=== PATIENT | female | born 1965 | race Caucasian/White ===

== ENCOUNTER → 2024-11-16 | Outpatient (CLI) | payer MEDICAID, SELFPAY ==
--- NOTE | 2024-11-16 14:07 | CT_ITS ---
PROCEDURE: SINUS/FACIAL BONE REASON FOR EXAM: CHRONIC SINUSITIS TECHNIQUE: CT of the paranasal sinuses without contrast. Coronal and Sagittal reconstruction series were provided. One or more dose reduction techniques were used (e.g., Automated exposure control, adjustment of the mA and/or kV according to patient size, use of iterative reconstruction technique). COMPARISON: None. FINDINGS: Frontal: Normally aerated Ethmoid: Normally aerated. Sphenoid: Normally aerated Maxillary: Submucosal thickening in the floor of the right maxillary sinus consistent with chronic sinusitis. Patent ostiomeatal units bilaterally. Turbinates: Right-sided osiel bullosa. Nasal Septum: Deviation of the nasal septum to the left. Mastoids/Middle Ears: CT/Sinus/Facial Bone IMPRESSION: Chronic right maxillary sinusitis. Patent ostiomeatal units bilaterally. Right-sided osiel bullosa. Deviation of the nasal septum to the left. Reading Location: [id number]
== END | disposition home or self-care (01) ==
LOC: CT 14:04
PROVIDERS: PCP Family Medicine; Referring Provider Otolaryngology; Visit Provider Otolaryngology
DX: J32.8 Other chronic sinusitis (principal)
CPT/HCPCS: 70486